=== PATIENT | male | born 1970 | race Caucasian/White ===

== ENCOUNTER 2019-12-03 12:30 | Emergency (ER) | payer BC, SELFPAY ==
--- NOTE | 2019-12-03 14:28 | ER ---
Nurse's Notes [facility] Name: Dennis Gamez Age: 49 yrs Sex: Male : 1970 Arrival Date: 12/03/2019 Time: 12:32 Bed 16 Private MD: Diagnosis: Insect bite (nonvenomous) of left upper arm;Cellulitis of left upper limb Presentation: 12/02 12:52 Chief complaint: Patient states: "Spider bite" to left AC for 2 days getting ll1 progressively worse. No fever. Coronavirus screen: Proceed with normal triage. Patient denies a cough. Patient denies shortness of breath or difficulty breathing. Patient denies measured and/or subjective temperature greater than 100.4F prior to today's visit. Patient denies travel on a cruise ship or to a country the [facility] currently lists as an affected area. Patient denies contact with known and/or suspected case of COVID-19. Ebola Screen: Patient denies travel to an Ebola-affected area in the 21 days before illness onset. Initial Sepsis Screen: Does the patient meet any 2 criteria? No. Patient's initial sepsis screen is negative. Does the patient have a suspected source of infection? No. Patient's initial sepsis screen is negative. Risk Assessment: Do you want to hurt yourself or someone else? Patient reports no desire to harm self or others. Onset of symptoms was December 01, 2019. 12:52 Method Of Arrival: Ambulatory ll1 12:52 Acuity: CRAIG 4 ll1 Triage Assessment: 13:21 Bite description: bite by an unknown animal, animal information: vaccination(s) is ll1 unknown. 14:00 Bite description: bite sustained to left arm. vc Historical: - Allergies: 12:55 No Known Allergies; ll1 - PMHx: 12:55 skin CA all over; ll1 - PSHx: 12:55 Tonsillectomy; ll1 - Immunization history:: Adult Immunizations up to date. - Social history:: Smoking status: Patient reports the use of cigarette tobacco products, smokes one pack cigarettes per day. Patient/guardian denies using alcohol, street drugs. Screenin:20 Abuse screen: Denies threats or abuse. Nutritional screening: No deficits noted. ll1 Tuberculosis screening: No symptoms or risk factors identified. Fall Risk None identified. Total Butler Fall Scale indicates No Risk (0-24 pts). Assessment: 13:18 General: Appears in no apparent distress. Behavior is calm, cooperative, appropriate ll1 for age. Pain: Complains of pain in left arm Pain currently is 8 out of 10 on a pain scale. Quality of pain is described as aching, Pain began 2-3 days ago. Neuro: No deficits noted. Cardiovascular: No deficits noted. Respiratory: No deficits noted. Derm: Skin is fragile, Skin is dry, Skin is red, Skin temperature is warm Wound noted left AC Abscess located on left AC is surrounding cellulitis has purulent drainage. Musculoskeletal: No deficits noted. Injury Description: possible insect bite. 14:54 Reassessment: Patient appears in no apparent distress at this time. Patient and/or vc family updated on plan of care and expected duration. Pain level reassessed. Patient is alert, oriented x 3, equal unlabored respirations, skin warm/dry/pink. Vital Signs: 12:52 BP 150 / 93; Pulse 88; Resp 17; Temp 98.7; Pulse Ox 98% ; Pain 8/10; ll1 ED Course: 12:32 Patient arrived in ED. ag5 12:49 Jack Castillo NP is PHCP. pm1 12:49 Devonte Carney MD is Attending Physician. pm1 12:52 Cuba Cheung, FREDERICK is Primary Nurse. ll1 12:54 Triage completed. ll1 12:55 Arm band placed on Patient placed in an exam room, on a stretcher. ll1 13:21 Patient has correct armband on for positive identification. Bed in low position. Call ll1 light in reach. Side rails up X 1. 14:54 No provider procedures requiring assistance completed. Patient did not have IV access vc during this emergency room visit. Administered Medications: 14:47 Drug: Tetanus-Diphtheria Toxoid Adult 0.5 ml {Roller Print Tender: [employer]. Exp: vc 08/26/2020. Lot #: [id number]. } Route: IM; Site: left deltoid; 14:48 Drug: TORadol 30 mg Route: IM; Site: right deltoid; vc 14:48 Drug: Bactroban Ointment 2 % 1 application Route: Topical; Site: left forearm; vc Outcome: 14:27 Discharge ordered by . pm1 14:55 Condition: good vc 15:02 Discharged to home ambulatory. vc 15:02 Discharge instructions given to patient, Instructed on discharge instructions, follow up and referral plans. no drinking with medication, no driving heavy equipment, medication usage, wound care, Demonstrated understanding of instructions, follow-up care, medications, wound care, Prescriptions given X 3. 15:03 Patient left the ED. vc Signatures: Jack Castillo NP EXHIBITIONS CURATOR pm1 Maria D Saravia ag5 Sonali Leyva RN RN vc Lewis, Lynsay, RN RN ll1
--- NOTE | 2019-12-03 14:28 | EDPHYS ---
Physician Documentation [facility] Name: Dennis Gamez Age: 49 yrs Sex: Male : 1970 Arrival Date: 12/03/2019 Time: 12:32 Bed 16 Private MD: ED Physician Devonte Carney HPI: 12/02 13:55 This 49 yrs old Male presents to ER via Ambulatory with complaints of Insect pm1 Bite. 15:43 the patient presents with a swollen area of the left antecubital area. Description: pm1 draining, raised, swollen. 15:43 Onset: The symptoms/episode began/occurred 2 day(s) ago. Possible cause(s): insect pm1 sting, wasp sting. Associated signs and symptoms: Pertinent positives: drainage, Pertinent negatives: fever, nausea, shortness of breath, vomiting. Modifying factors: the symptoms are alleviated by nothing, the symptoms are aggravated by nothing. Severity of symptoms: in the emergency department the symptoms are actually worse. The patient has experienced similar episodes in the past, a few times. Patient reports swelling, redness and drainage to left AC after being bitten by wasps while working underneath his mother's house. Historical: - Allergies: 12:55 No Known Allergies; ll1 - PMHx: 12:55 skin CA all over; ll1 - PSHx: 12:55 Tonsillectomy; ll1 - Immunization history:: Adult Immunizations up to date. - Social history:: Smoking status: Patient reports the use of cigarette tobacco products, smokes one pack cigarettes per day. Patient/guardian denies using alcohol, street drugs. ROS: 15:43 Constitutional: Negative for fever, chills, and weight loss, Cardiovascular: Negative pm1 for chest pain, palpitations, and edema, Respiratory: Negative for shortness of breath, cough, wheezing, and pleuritic chest pain, Abdomen/GI: Negative for abdominal pain, nausea, vomiting, diarrhea, and constipation, Back: Negative for injury and pain. 15:43 MS/extremity: Positive for pain, swelling, of the left antecubital area. 15:43 Skin: Positive for cellulitis, swelling, of the left antecubital area. Exam: 15:43 Constitutional: This is a well developed, well nourished patient who is awake, alert, pm1 and in no acute distress. Head/Face: Normocephalic, atraumatic. Chest/axilla: Normal chest wall appearance and motion. Nontender with no deformity. No lesions are appreciated. 15:43 Cardiovascular: Exam negative for acute changes, Rate: normal, Rhythm: regular, Pulses: no pulse deficits are appreciated. 15:43 Respiratory: Exam negative for acute changes, respiratory distress, shortness of breath. 15:43 Abdomen/GI: Inspection: abdomen appears normal, Palpation: abdomen is soft and non-tender, in all quadrants. 15:43 Musculoskeletal/extremity: Extremities: grossly normal except: noted in the left antecubital area: indurated area with central abraded lesion. Needle aspiration negative for purulent drainage. No fluctuance or pointing. Vital Signs: 12:52 BP 150 / 93; Pulse 88; Resp 17; Temp 98.7; Pulse Ox 98% ; Pain 8/10; ll1 MDM: 13:52 Patient medically screened. pm1 14:26 Data reviewed: vital signs. Data interpreted: Pulse oximetry: on room air is 98 %. pm1 Interpretation: normal. Counseling: I had a detailed discussion with the patient and/or guardian regarding: the historical points, exam findings, and any diagnostic results supporting the discharge/admit diagnosis, the need for outpatient follow up, a family practitioner, a general surgeon, to return to the emergency department if symptoms worsen or persist or if there are any questions or concerns that arise at home. 14:43 ED course: COMPUTER PROGRAMMING SUPERVISOR aware reviewed. pm1 12/02 14:26 Order name: Wound dressing; Complete Time: 14:48 pm1 Administered Medications: 14:47 Drug: Tetanus-Diphtheria Toxoid Adult 0.5 ml {Economic Geographer: [employer]. Exp: vc 08/26/2020. Lot #: [id number]. } Route: IM; Site: left deltoid; 14:48 Drug: TORadol 30 mg Route: IM; Site: right deltoid; vc 14:48 Drug: Bactroban Ointment 2 % 1 application Route: Topical; Site: left forearm; vc Disposition: 19:45 Co-signature as Attending Physician, Devonte Carney MD. [email or web address] Disposition: 12/03/19 14:27 Discharged to Home. Impression: Cellulitis of left upper limb, Insect bite (nonvenomous) of left upper arm. - Condition is Stable. - Discharge Instructions: Insect Bite, Cellulitis, Adult. - Prescriptions for Keflex 500 mg Oral Capsule - take 1 capsule by ORAL route every 6 hours for 10 days; 40 capsule. Bactrim DS 800- 160 mg Oral Tablet - take 1 tablet by ORAL route every 12 hours for 10 days; 20 tablet. Tylenol- Codeine #3 300-30 mg Oral Tablet - take 2 tablets by ORAL route every 6 hours As needed; 20 tablet. - Medication Reconciliation Form, Thank You Letter, Antibiotic Education, Prescription Opioid Use form. - Follow up: Emergency Department; When: As needed; Reason: Worsening of condition. Follow up: Private Physician; When: 2 - 3 days; Reason: Recheck today's complaints, Continuance of care, Re-evaluation by your physician. - Problem is new. - Symptoms have improved. Signatures: Jack Castillo NP CHAIN BUILDER LOOM CONTROL pm1 Sonali Leyva RN RN vc [place] Cheung RN RN ll1 Devonte Carney MD MD [email or web address] Corrections: (The following items were deleted from the chart) 14:29 14:27 12/03/2019 14:27 Discharged to Home. Impression: Insect bite (nonvenomous) of pm1 left upper arm. Condition is Stable. Forms are Medication Reconciliation Form, Thank You Letter, Antibiotic Education, Prescription Opioid Use. Follow up: Emergency Department; When: As needed; Reason: Worsening of condition. Follow up: Private Physician; When: 2 - 3 days; Reason: Recheck today's complaints, Continuance of care, Re-evaluation by your physician. Problem is new. Symptoms have improved. pm1 15:03 14:29 12/03/2019 14:27 Discharged to Home. Impression: Cellulitis of left upper vc limbInsect bite (nonvenomous) of left upper arm. Condition is Stable. Discharge Instructions: Insect Bite. Forms are Medication Reconciliation Form, Thank You Letter, Antibiotic Education, Prescription Opioid Use. Follow up: Emergency Department; When: As needed; Reason: Worsening of condition. Follow up: Private Physician; When: 2 - 3 days; Reason: Recheck today's complaints, Continuance of care, Re-evaluation by your physician. Problem is new. Symptoms have improved. pm1
[2019-12-03] MEDS ORDERED: TETANUS & DIPHTHERIA TOX,ADULT 0.5 ML VIAL ONE (14:35)
[2019-12-03] MEDS ORDERED: MUPIROCIN 2% OINT 22GM TUBE TOP ONE (14:35)
[2019-12-03] MEDS ORDERED: KETOROLAC 30 MG/ML INJ ONE (14:35)
[2019-12-03 17:04] VITALS: BP 150/93; TEMP 98.7; O2SAT 98
== END 2019-12-03 15:03 | disposition home or self-care (01) ==
LOC: ER 12:30
DX: L03.114 Cellulitis of left upper limb (principal); F17.210 Nicotine dependence, cigarettes, uncomplicated; Z23 Encounter for immunization; Z85.828 Personal history of other malignant neoplasm of skin
CPT/HCPCS: 90471; 90714; 96372; 99283